=== PATIENT | male | born 1985 | race Caucasian/White ===

== ENCOUNTER 2018-12-02 14:55 | Emergency (ER) | payer MEDICAID, OTHER ==
[~2018-12-02] VITALS: Ht 162.6 cm; Wt 51.3 kg
[2018-12-02 14:59] VITALS: Ht 162.6 cm; Wt 51.3 kg
[2018-12-02 18:33] VITALS: BP 120/97; PULSE 107; RESP 20
--- NOTE | 2018-12-02 19:17 | ERD ---
ER Documentation Chief Complaint Chief Complaint drug use HPI This is a 33-year-old male who presents to the emergency room with his friend. 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 The patient used methamphetamine earlier this morning. He states that he felt slightly lightheaded prompting his friend to bring him to the emergency room. Currently the patient feels much better though states that he is hungry as he has not had anything to eat or drink all day. Patient denies any headache chest pain or shortness of breath. No numbness or tingling. He denies any suicidal or homicidal ideation. His friend is asking for substance abuse resources. ROS All systems reviewed and are negative except as per history of present illness. FmHx Family History: No diabetes Physical Exam Vitals Vital Signs Date Temp Pulse Resp B/P (MAP) Pulse Ox O2 O2 Flow FiO2 Time Delivery Rate 12/02/18 99.5 122 24 131/90 97 14:59 (104) Physical Exam General: Well developed, well nourished, no acute distress Head: Normocephalic, atraumatic. Eyes: EOM intact ENT: Moist mucous membranes Neck: Full ROM Respiratory: No respiratory distress Cardiovascular: Well perfused distally Abdominal: Nondistended : Deferred MSK: No edema, no unilateral swelling, 5/5 strength Neurologic: Alert and oriented, moving all extremities, normal speech, steady gait Skin: No rash Psych: Normal mood, no SI or HI Procedures/MDM The patient has received a medical screening examination. The patient's presentation is consistent with subacute methamphetamine use. No signs or symptoms concerning for endorgan dysfunction. Patient has a nonfocal neurologic exam. Reassurance provided. Substance abuse resources provided. Patient does not appear to be a danger to himself or others. He was given food and drink and will be discharged. Departure Diagnosis: Primary Impression: Substance abuse Additional Impression: Methamphetamine abuse Condition: Good Patient Instructions: Substance abuse Referrals: [facility] Usted se hedrick hecho un examen mdico de control que le indica que no est en antonino condicin que requiera tratamiento urgente en el Departamento de Emergencia. Un estudio ms profundo y el tratamiento de perkins condicin pueden esperar sin ningn riesgo hasta que usted sea atendida/o en el consultorio de perkins mdico o antonino clnica. Es responsabilidad suya arreglar antonino epifanio para el seguimiento del sudha. MANEJO DE CONDICIONES NO URGENTES EN EL FUTURO 1) Si usted tiene un mdico de atencin primaria: Usted debera llamar a perkins mdico de atencin primaria antes de venir al departamento de emergencia. Despus de las horas de consultorio, perkins doctor o perkins asociado/a est disponible por telfono. El mdico o enfermero de hoang en el servicio telefnico puede asesorarle por sherman medio para atender el problema, o sudha contrario se puede programar antonino epifanio. 2) Si usted no tiene un mdico de atencin primaria: Llame al mdico o clnica de referencia que aparece abajo larry las horas de consultorio para hacer antonino epifanio para que le vean. CLINICAS: [facility] [phone] [facility] [phone] [facility] [phone] [facility] [facility] [phone] [facility] [address] [facility]. [place] [id number] [phone] [facility] [phone] [facility] () Usted se hedrick hecho un examen mdico de control que le indica que no est en antonino condicin que requiera tratamiento urgente en el Departamento de Emergencia. Un estudio ms profundo y el tratamiento de perkins condicin pueden esperar sin ningn riesgo hasta que usted sea atendida/o en el consultorio de perkins mdico o antonino clnica. Es responsabilidad suya arreglar antonino epifanio para el seguimiento del sduha. MANEJO DE CONDICIONES NO URGENTES EN EL FUTURO 1) Si usted tiene un mdico de atencin primaria: Usted debera llamar a perkins mdico de atencin primaria antes de venir al departamento de emergencia. Despus de las horas de consultorio, perkins doctor o perkins asociado/a est disponible por telfono. El mdico o enfermero de hoang en el servicio telefnico puede asesorarle por sherman medio para atender el problema, o sudha contrario se puede programar antonino epifanio. 2) Si usted no tiene un mdico de atencin primaria: Llame al mdico o condado institucions de referencia que aparece abajo larry las horas de consultorio para hacer antonino epifanio para que le vean. SI USTED NO PUEDE PAGAR PARA LIVE UN MEDICO puede ir a: [facility] [address] [place], [place] [id number] [place] [address] [address] [place] [address] [facility] [address] [place] [address] PARA COMPA [facility] [address] [place], [place] [id number] Additional Instructions: Llame al doctor nombrado abajo (Referral Sources) MAANA y carlos antonino EPIFANIO PARA DENTRO DE ANTONINO SEMANA. Dgale a la secretaria que nosotros le instruimos hacer esta epifanio.Avise o llame si perkins condicin se empeora antes de la epifanio. ARY HERNANDEZ MD Dec 02, 2018 19:17
== END 2018-12-02 18:33 | disposition home or self-care (01) ==
LOC: E/R 14:55
DX: F15.10 Other stimulant abuse, uncomplicated (principal)
CPT/HCPCS: 99282